=== PATIENT | male | born 1975 | race Caucasian/White ===

== ENCOUNTER 2019-01-23 13:23 | Inpatient (IN) | payer MEDICAID, SELFPAY ==
[2019-01-23 14:07] VITALS: BMI 24.6; BMI 24.7
[2019-01-23 14:56] VITALS: BP 140/73; PULSE 103; RESP 18; TEMP 36.8; O2SAT 95
[2019-01-23 15:21] LABS: Bedside Glucose 90 mg/dL (70-110)
--- NOTE | 2019-01-23 15:35 | HP.PCM_ITS ---
Problem List (1) Alcohol withdrawal delirium, acute, mixed level of activity Status: Acute (2) Alcohol use disorder Status: Chronic (3) Chronic hepatitis C Status: Chronic Qualifiers: Hepatic coma status: without hepatic coma Qualified Code(s): B18.2 - Chronic viral hepatitis C (4) Nicotine dependence Status: Chronic Qualifiers: Nicotine product type: cigarettes Substance use status: uncomplicated Qualified Code(s): F17.210 - Nicotine dependence, cigarettes, uncomplicated History of Present Illness Date of Admission: 01/23/19 Chief Complaint: Acute alcohol withdrawal The patient is a 43 year old M with past medical history of alcohol and nicotine dependence, complicated by history of alcohol withdrawal seizures, chronic hepatitis C, anxiety/depression who comes in for medical stabilization for acute alcohol withdrawal on the [facility] program. Patient admits to drinking alcohol from the age of 14. He drinks about 24 tall 8% beers daily. He has a history of heroin abuse but does not use it currently, also history of methamphetamine use, last used 3 months ago. Patient complains of having nausea, and having abdominal cramps, and tremors. No vomiting. His admission vitals include temperature of 90 8.3F, heart rate 103, blood pressure 140/73, respiratory rate was 18, SPO2 95% on room air. Past Medical History Past Medical History (Chronic Problems): Chronic Problems Alcohol use disorder (Chronic) Chronic hepatitis C (Chronic) Nicotine dependence (Chronic) Allergies No Known Allergies Allergy (Verified 01/23/19 14:56) Home Medications: Ambulatory Orders Medication Instructions Recorded Citalopram [Celexa] 40 mg PO DAILY 01/23/19 Surgical History: cholecystectomy Psychiatric History: Anxiety, Depression Lives: With Family Smoking Status: Current every day smoker Tobacco Use: Cigarettes Alcohol: None, Heavy Drugs: None - *Family History Maternal History Items: No pertinent history Paternal History Items: No pertinent history Review of Systems Constitutional: Denies: Anorexia, Chills, Fever, Malaise, Weakness, Weight Change Eyes: Denies: Blurred vision, Cataracts, Conjunctivae Inflammation, Pain, Redness, Vision Change HEENT: Denies: Difficulty Hearing, Difficulty Swallowing, Head Aches, Hearing Changes, Sinus Congestion, Sinus Drainage Cardiovascular: Denies: Chest Pain, Claudication, Orthopnea, Palpitations, Paroxysmal Noc. Dyspnea Respiratory: Denies: Cough, Hemoptysis, Shortness of breath at rest, Shortness of breath upon exertion, Sputum production Gastrointestinal: Denies: Abdominal Pain, Constipation, Hematemesis, Hematochezia, Nausea, Vomiting Genitourinary: Denies: Dysuria, Frequency, Incontinence Musculoskeletal: Denies: Joint Pain, Joint stiffness, Joint swelling, Joint Tenderness Skin: Denies: Rash, Wounds Neurological: Denies: Numbness, Tingling, Focal weakness Psychiatric: Denies: Anxiety, Depression, Homicidal Ideations, Suicidal Ideations Hematologic/ Lymphatic: Denies: Easy Bruising, Easy Bleeding VTE Information - Inpt Only VTE Present on Admission: No VTE Pharm Prophylaxis ordered?: Yes Patient Problems: Active and Suspected Problems Alcohol withdrawal delirium, acute, mixed level of activity (Acute) - Physical Exam General: Alert, Oriented x3, Cooperative, - - Appeared anxious HEENT: Atraumatic, PERRLA, EOMI, Normocephalic Oral: Moist Mucosa Neck: Supple Lungs: Clear to auscultation, Normal air movement Cardiovascular: Regular rate, Regular Rhythm, Normal S1, Normal S2, No murmurs Abdomen: Bowel Sounds Present, Soft, Non Tender, Non-Distended, No Hepato- splenomegaly Extremities: No edema Skin: No rashes, - - Tattoos on the left upper extremity Musculoskeletal: No Tenderness to Palpation of Joints or Extremities Lymphatic: No Cervical, Supraclavicular, or Inguinal Adenopathy Neurological: Cranial nerves II-XII grossly intact Psych/Mental Status: Normal Affect, Appropriate Vital Signs Temp Pulse Resp BP Pulse Ox 98.3 F 103 H 18 140/73 H 95 01/23/19 14:56 01/23/19 14:56 01/23/19 14:56 01/23/19 14:56 01/23/19 14:56 Oxygen Delivery Method Room Air Weight: 71.441 kg Body Mass Index (BMI) 24.6 Laboratory Tests Past 24 Hrs 01/23/19 01/23/19 15:05 15:05 WBC Pending RBC Pending Hgb Pending Hct Pending MCV Pending MCH Pending MCHC Pending RDW Pending RDW Differential Pending Plt Count Pending Neut % (Auto) Pending Absolute Neuts (auto) Pending Total Counted Pending Sodium Pending Potassium Pending Chloride Pending Carbon Dioxide Pending Anion Gap Pending BUN Pending Creatinine Pending Est GFR (MDRD) Af Amer Pending Est GFR (MDRD) Non-Af Pending BUN/Creatinine Ratio Pending Glucose Pending Calcium Pending Total Bilirubin Pending AST Pending ALT Pending Alkaline Phosphatase Pending Total Protein Pending Albumin Pending POC Glucose 01/23/19 15:18 POC Glucose 90 Assessment/Plan All Active Problems Alcohol withdrawal delirium, acute, mixed level of activity (Acute) 43 year old M with past medical history of alcohol and nicotine dependence, complicated by history of alcohol withdrawal seizures, chronic hepatitis C, anxiety/depression who comes in for medical stabilization for acute alcohol withdrawal on the [facility]. 1. Acute alcohol withdrawal, admitting CIWA score is 31, h/o heavy alcohol use disorder, h/o seizure disorder Plan: Admit to MedSurg, seizure precautions, continue on CIWA with Ativan taper, continue to monitor vitals closely. 2. Nicotine dependence, will start on replacement 3. Anxiety/dependence, on celexa 4. Chronic Hepatitis C, needs to follow-up in the outpatient 5. DVT PPx- Lovenox SC. Code Visit Inpatient E&M: 79300 Init Hosp L3
[2019-01-23 15:49] LABS: Absolute Lymphocyte Count 1.95 X10^3/ul (0.83-4.51); Absolute Neutrophil Count 2.9 X10^3/uL (2.0-7.7); Basophil# 0.03 X10^3/uL; Basophil% 0.5 % (0-1); Eosinophil# 0.34 X10^3/uL; Eosinophils% 5.9 % (0-5); Hematocrit 47.8 % (40-54); Hemoglobin 17.4 g/dl (13.0-16.5); Lymphocyte # 1.95 X10^3/ul (4.0); Lymphocyte % 33.7 % (19-41); Mean Corp Hgb Conc 36.4 g/gl (32-36); Mean Corpuscular Hgb 35.2 pg (27.0-32.0); Mean Corpuscular Volume 96.8 fL (80-94); Mean Platelet Vol. 8.3 fl (6.2-12.0); Monocyte# 0.53 X10^3/uL; Monocyte% 9.2 % (0-10); Neutrophil # 2.93 X10^3/uL (2.7-7.7); Neutrophil % 50.5 % (47-70); Platelet Count 196 K/mm3 (150-450); RBC Distribution Width CV 13.9 % (11.6-14.6); RBC Distribution Width SD 49.9 fl (35.1-43.9); Red Blood Count 4.94 M/mm3 (4.6-6.2); White Blood Count 5.8 K/mm3 (4.4-11.0)
[2019-01-23] MEDS: Dicyclomine 10 MG Capsule 20 MG PO ×2 (15:49→23:45)
[2019-01-23] MEDS: LORazepam 1 MG Tablet PO ×3 (15:49→23:45)
[2019-01-23] MEDS: Methocarbamol 750 MG Tablet PO ×2 (15:49→23:46)
[2019-01-23] MEDS: Ibuprofen 600 MG Tablet PO ×2 (15:49→23:45)
[2019-01-23 15:50] LABS: ALB/GLOB Ratio 1.1 RATIO (0.9-2.4); AST(SGOT) 144 U/L (15-37); Alanine Aminotransfer ALT/SGPT 131 U/L (16-61); Albumin, Serum 4.2 g/dL (3.2-5.0); Alkaline Phosphatase 103 U/L (45-117); Anion Gap 7 (5-15); BUN 4 mg/dL (7-18); BUN/Creat Ratio 5.8 RATIO (10-20); Calcium,Total 8.5 mg/dL (8.5-10.1); Chloride 105 mmol/L (98-107); Creatinine, Serum 0.69 mg/dL (0.70-1.30); EST Glomerular Filtration Rate 135 mL/min (>60); Est Glom Filt Rate - Afr Amer 163 mL/min (>60); Estimated Creatinine Clearance 131.72 ml/min; Globulin 3.7 g/dL (2.2-4.2); Glucose 83 mg/dL (74-106); Potassium 3.8 mmol/L (3.5-5.1); Protein, Total 7.9 g/dL (6.4-8.2); Sodium Level 137 mmol/L (136-145)
[2019-01-23 15:55] LABS: POSITIVE COUNT NO; POSITIVE DIFFERENTIAL NO; POSITIVE MORPHOLOGY NO
[2019-01-23] MEDS: Folic Acid 1 MG Tablet PO (16:02)
[2019-01-23] MEDS: Multivitamins,Therapeutic Tablet 1 TABLET PO (16:02)
[2019-01-23] MEDS: Nicotine Polacrilex 2 MG GUM PO ×2 (16:02→20:38)
[2019-01-23] MEDS: Thiamine Hydrochloride 100 MG Tablet PO (16:02)
[2019-01-23 20:30] VITALS: BP 143/96; PULSE 103; RESP 18; TEMP 36.4; O2SAT 100
[2019-01-23] MEDS: traZODone 50 MG Tablet PO (20:34)
[2019-01-23 21:33] LABS: Amphetamine Urine VISTA NEGATIVE (<1000 ng/mL); Barbiturate Urine VISTA NEGATIVE (< 200 ng/mL); Benzodiazepine Urine VISTA NEGATIVE (< 200 ng/mL); Cocaine Urine VISTA NEGATIVE (< 300 ng/mL); Ecstacy Urine VISTA NEGATIVE (< 500 ng/mL); Methadone Urine VISTA NEGATIVE (< 300 ng/mL); PCP Urine VISTA NEGATIVE (< 25 ng/mL); THC Urine VISTA POSITIVE (< 50 ng/mL); Vista UDS pH Range 5
[2019-01-23 23:47] VITALS: BP 139/95; PULSE 110; RESP 16; TEMP 36.7; O2SAT 100
[2019-01-24] VITALS (7 sets, daily range): BP systolic 133–148; BP diastolic 89–102; PULSE 74–105; RESP 16–18; TEMP 36.5–37.2; O2SAT 97–100
[2019-01-24] MEDS: LORazepam 1 MG Tablet PO ×5 (04:04→23:45)
[2019-01-24] MEDS: Folic Acid 1 MG Tablet PO (08:27)
[2019-01-24] MEDS: Thiamine Hydrochloride 100 MG Tablet PO (08:28)
[2019-01-24] MEDS: Multivitamins,Therapeutic Tablet 1 TABLET PO (08:28)
--- NOTE | 2019-01-24 08:36 | NEWVISION ---
Patient's D/C plan is to move into [facility] for their 7 month rehabilitation for men immediately upon D/C. Mother to provide transportation.
--- NOTE | 2019-01-24 09:10 | PN_ITS ---
Patient Problems: Active and Suspected Problems Alcohol withdrawal delirium, acute, mixed level of activity (Acute) Subjective: Patient was seen and examined. Denied any new complaint. His tremors and abdominal discomfort has improved. Objective: Physical Exam General: Alert, Oriented x3, Cooperative, - - Appeared less anxious HEENT: Atraumatic, PERRLA, EOMI, Normocephalic Oral: Moist Mucosa Neck: Supple Lungs: Clear to auscultation, Normal air movement Cardiovascular: Regular rate, Regular Rhythm, Normal S1, Normal S2, No murmurs Abdomen: Bowel Sounds Present, Soft, Non Tender, Non-Distended, No Hepato- splenomegaly Extremities: No edema Skin: No rashes, - - Tattoos on the left upper extremity Musculoskeletal: No Tenderness to Palpation of Joints or Extremities Lymphatic: No Cervical, Supraclavicular, or Inguinal Adenopathy Neurological: Cranial nerves II-XII grossly intact Psych/Mental Status: Normal Affect, Appropriate Vitals/I&O's: Vital Signs Temp Pulse Resp BP Pulse Ox 97.7 F L 94 16 140/98 H 100 01/24/19 04:07 01/24/19 04:07 01/24/19 04:07 01/24/19 04:07 01/24/19 04:07 Oxygen Delivery Method Room Air Weight: 71.441 kg Body Mass Index (BMI) 24.6 Intake and Output for Last 24 Hours 01/22/19 01/23/19 01/24/19 23:59 23:59 23:59 Intake Total 480 / 480 200 / 200 Balance 480 / 480 200 / 200 Laboratory Results 01/23/19 15:05: WBC 5.8, RBC 4.94, Hgb 17.4 H, Hct 47.8, MCV 96.8 H, MCH 35.2 H, MCHC 36.4 H, RDW 13.9, RDW Differential 49.9 H, Plt Count 196, MPV 8.3, Immature Gran % (Auto) 0.200, Neut % (Auto) 50.5, Lymph % (Auto) 33.7, Knott % (Auto) 9.2, Eos % (Auto) 5.9 H, Baso % (Auto) 0.5, Absolute Neuts (auto) 2.9, Absolute Lymphs (auto) 1.95, Total Counted Not Reportable 01/23/19 15:05: Sodium 137, Potassium 3.8, Chloride 105, Carbon Dioxide 25.0, Anion Gap 7, BUN 4 L, Creatinine 0.69 L, Estim Creat Clear Calc 131.72, Est GFR (MDRD) Af Amer 163, Est GFR (MDRD) Non-Af 135, BUN/Creatinine Ratio 5.8 L, Glucose 83, Calcium 8.5, Total Bilirubin 0.50, AST 144 H, ALT 131 H, Alkaline Phosphatase 103, Total Protein 7.9, Albumin 4.2, Globulin 3.7, Albumin/Globulin Ratio 1.1 01/23/19 15:18: POC Glucose 90 01/23/19 21:06: Urine Opiates Screen NEGATIVE, Urine Methadone Screen NEGATIVE, Ur Barbiturates Screen NEGATIVE, Ur Phencyclidine Scrn NEGATIVE, Ur Amphetamines Screen NEGATIVE, U Methamphetamin-MDMA NEGATIVE, U Benzodiazepines Scrn NEGATIVE, Urine Cocaine Screen NEGATIVE, U Cannabinoids Screen POSITIVE H, Ur Drug Screen Comment Current Medications Acetaminophen (Tylenol) 500 mg PO Q4H PRN PRN PRN Reason: Temp > 100.4 F Bisacodyl (Dulcolax) 10 mg RECTAL DAILY PRN PRN Reason: Constipation Dicyclomine HCl (Bentyl) 20 mg PO Q6H PRN PRN PRN Reason: abdominal discomfort Last Admin: 01/23/19 23:45 Dose: 20 mg Enoxaparin Sodium (Lovenox) 40 mg SC DAILY@1000 RENEE Folic Acid (Folic Acid) 1 mg PO DAILYCM RENEE Stop: 01/26/19 08:01 Last Admin: 01/24/19 08:27 Dose: 1 mg Ibuprofen (Motrin) 600 mg PO Q8H PRN PRN PRN Reason: Mild-Moderate Pain (1-5/10) Last Admin: 01/23/19 23:45 Dose: 600 mg Loperamide HCl (Imodium) 2 - 4 mg PO UD PRN PRN Reason: LOOSE STOOLS Lorazepam (Ativan) 2 mg IV X1 PRN PRN Reason: Seizure Lorazepam (Ativan) 1 mg PO Q4H RENEE; Taper Stop: 01/26/19 19:59 Last Admin: 01/24/19 08:27 Dose: 1 mg Methocarbamol (Methocarbamol) 750 mg PO Q6H PRN PRN PRN Reason: Muscle Aches Last Admin: 01/23/19 23:46 Dose: 750 mg [facility] Last Admin: 01/24/19 08:28 Dose: 1 tablet Nicotine (Nicoderm Cq (Pbkc)) 21 mg TRANSDERM. DAILY [facility] Last Admin: 01/23/19 16:05 Dose: Not Given Nicotine Polacrilex (Rugby Nicotine (Bkc)) 2 mg PO Q2H PRN PRN PRN Reason: Nicotine Craving Last Admin: 01/23/19 20:38 Dose: 2 mg Senna (Senokot) 1 tablet PO QHS PRN PRN Reason: Constipation Thiamine HCl ([facility]itamin B1) [facility] Stop: 01/26/19 08:01 Last Admin: 01/24/19 08:28 Dose: 100 mg Trazodone HCl (Desyrel) 50 mg PO QHS [facility] Last Admin: 01/23/19 20:34 Dose: 50 mg Medical Necessity - Tobacco Use Smoking Status: Current every day smoker Tobacco Use: Cigarettes Assessment/Plan All Active Problems Alcohol withdrawal delirium, acute, mixed level of activity (Acute) 43 year old M with past medical history of alcohol and nicotine dependence, complicated by history of alcohol withdrawal seizures, chronic hepatitis C, anxiety/depression who comes in for medical stabilization for acute alcohol withdrawal on the [facility] program. 1. Acute alcohol withdrawal, admitting CIWA score is 31, h/o heavy alcohol use disorder, h/o seizure disorder Improving, CIWA score this morning is 8. Continue with Ativan taper, with monitoring of vitals closely. 2. Nicotine dependence, on replacement 3. Anxiety/dependence, on celexa 4. Chronic Hepatitis C, needs to follow-up in the outpatient 5. DVT PPx- Lovenox SC. Code Visit Inpatient E&M: 49859 Subs Hosp L2
[2019-01-24] MEDS: Enoxaparin 40 MG/0.4 ML Syringe SC (10:07)
[2019-01-24] MEDS: Nicotine Polacrilex 2 MG GUM PO ×3 (15:50→23:46)
[2019-01-24] MEDS: Ibuprofen 600 MG Tablet PO (19:47)
[2019-01-24] MEDS: Methocarbamol 750 MG Tablet PO (19:47)
[2019-01-24] MEDS: traZODone 50 MG Tablet PO (21:49)
[2019-01-25 05:48] VITALS: BP 139/86; PULSE 76; RESP 16; TEMP 36.4; O2SAT 99
[2019-01-25] MEDS: LORazepam 1 MG Tablet PO ×3 (05:50→20:12)
[2019-01-25] MEDS: Methocarbamol 750 MG Tablet PO ×3 (07:56→20:14)
[2019-01-25] MEDS: Enoxaparin 40 MG/0.4 ML Syringe SC (07:56)
[2019-01-25] MEDS: Nicotine Polacrilex 2 MG GUM PO ×5 (07:57→22:22)
[2019-01-25] MEDS: Folic Acid 1 MG Tablet PO (07:57)
[2019-01-25 07:59] VITALS: BP 127/81; PULSE 95; RESP 16; TEMP 36.5; O2SAT 99
--- NOTE | 2019-01-25 08:21 | PN_ITS ---
Patient Problems: Active and Suspected Problems Alcohol withdrawal delirium, acute, mixed level of activity (Acute) Subjective: Patient was seen and examined. Denies any new complains. He is beginning to feel better. Objective: Physical Exam General: Alert, Oriented x3, Cooperative, - - Appeared less anxious HEENT: Atraumatic, PERRLA, EOMI, Normocephalic Oral: Moist Mucosa Neck: Supple Lungs: Clear to auscultation, Normal air movement Cardiovascular: Regular rate, Regular Rhythm, Normal S1, Normal S2, No murmurs Abdomen: Bowel Sounds Present, Soft, Non Tender, Non-Distended, No Hepato- splenomegaly Extremities: No edema Skin: No rashes, - - Tattoos on the left upper extremity Musculoskeletal: No Tenderness to Palpation of Joints or Extremities Lymphatic: No Cervical, Supraclavicular, or Inguinal Adenopathy Neurological: Cranial nerves II-XII grossly intact Psych/Mental Status: Normal Affect, Appropriate Vitals/I&O's: Vital Signs Temp Pulse Resp BP Pulse Ox 97.7 F L 95 16 127/81 H 99 01/25/19 07:59 01/25/19 07:59 01/25/19 07:59 01/25/19 07:59 01/25/19 07:59 Oxygen Delivery Method Room Air Weight: 71.441 kg Body Mass Index (BMI) 24.6 Intake and Output for Last 24 Hours 01/23/19 01/24/19 01/25/19 23:59 23:59 23:59 Intake Total 480 / 480 3360 / 3360 300 / 300 Balance 480 / 480 3360 / 3360 300 / 300 Current Medications Acetaminophen (Tylenol) 500 mg PO Q4H PRN PRN PRN Reason: Temp > 100.4 F Bisacodyl (Dulcolax) 10 mg RECTAL DAILY PRN PRN Reason: Constipation Dicyclomine HCl (Bentyl) 20 mg PO Q6H PRN PRN PRN Reason: abdominal discomfort Last Admin: 01/23/19 23:45 Dose: 20 mg Enoxaparin Sodium (Lovenox) 40 mg SC DAILY@1000 RENEE Last Admin: 01/25/19 07:56 Dose: 40 mg Folic Acid (Folic Acid) 1 mg PO DAILYCM RENEE Stop: 01/26/19 08:01 Last Admin: 01/25/19 07:57 Dose: 1 mg Ibuprofen (Motrin) 600 mg PO Q8H PRN PRN PRN Reason: Mild-Moderate Pain (1-5/10) Last Admin: 01/24/19 19:47 Dose: 600 mg Loperamide HCl (Imodium) 2 - 4 mg PO UD PRN PRN Reason: LOOSE STOOLS Lorazepam (Ativan) 2 mg IV X1 PRN PRN Reason: Seizure Lorazepam (Ativan) 1 mg PO Q6H [facility]; Taper Stop: 01/26/19 19:59 Last Admin: 01/25/19 05:50 Dose: 1 mg Methocarbamol (Methocarbamol) 750 mg PO Q6H PRN PRN PRN Reason: Muscle Aches Last Admin: 01/25/19 07:56 Dose: 750 mg [facility]it[facility] ([facility]itamin) [facility] Last Admin: 01/24/19 08:28 Dose: 1 tablet Nicotine (Nicoderm Cq (Pbkc)) 21 mg TRANSDERM. DAILY [facility] Last Admin: 01/24/19 19:47 Dose: 21 mg Nicotine Polacrilex (Rugby Nicotine (Bkc)) 2 mg PO Q2H PRN PRN PRN Reason: Nicotine Craving Last Admin: 01/25/19 07:57 Dose: 2 mg Senna (Senokot) 1 tablet PO QHS PRN PRN Reason: Constipation Thiamine HCl (Vitamin B1) [facility] Stop: 01/26/19 08:01 Last Admin: 01/24/19 08:28 Dose: 100 mg Trazodone HCl (Desyrel) 50 mg PO QHS [facility] Last Admin: 01/24/19 21:49 Dose: 50 mg Medical Necessity - Tobacco Use Smoking Status: Current every day smoker Tobacco Use: Cigarettes Assessment/Plan All Active Problems Alcohol withdrawal delirium, acute, mixed level of activity (Acute) 43 year old M with past medical history of alcohol and nicotine dependence, complicated by history of alcohol withdrawal seizures, chronic hepatitis C, anxiety/depression who comes in for medical stabilization for acute alcohol withdrawal on the [facility] program. 1. Acute alcohol withdrawal, h/o heavy alcohol use disorder, h/o seizure disorder, improving No seizures seen in this hospitalisation, will continue on CIWA protocol. 2. Nicotine dependence, on replacement 3. Anxiety/dependence, on celexa 4. Chronic Hepatitis C, needs to follow-up in the outpatient 5. DVT PPx- Lovenox SC. 6. Disposition: Possible dc in am Code Visit Inpatient E&M: 43789 Subs Hosp L2
[2019-01-25] MEDS: Thiamine Hydrochloride 100 MG Tablet PO (10:34)
[2019-01-25] MEDS: Multivitamins,Therapeutic Tablet 1 TABLET PO (10:34)
[2019-01-25 14:09] VITALS: BP 136/100; PULSE 92; RESP 16; TEMP 36.4; O2SAT 98
--- NOTE | 2019-01-25 15:52 | NEWVISION ---
Patient called to report he was changing his DC plan to [facility] in [facility] which is close to where his daughter lives and that they just informed him that they had a bed open up.
[2019-01-25 18:14] VITALS: BP 132/91; PULSE 94; RESP 18; TEMP 36.6; O2SAT 100
[2019-01-25 20:10] VITALS: BP 135/99; PULSE 84; RESP 16; TEMP 36.9; O2SAT 95
[2019-01-25] MEDS: traZODone 50 MG Tablet PO (22:22)
[2019-01-26] MEDS: LORazepam 1 MG Tablet PO ×2 (04:52→11:58)
[2019-01-26 04:53] VITALS: BP 111/90; PULSE 90; RESP 14; TEMP 36.5
--- NOTE | 2019-01-26 07:40 | PCM.DC ---
- Discharge Diagnoses Current Active Problems: Current Active and Chronic Problems Alcohol withdrawal delirium, acute, mixed level of activity (Acute) Alcohol use disorder (Chronic) Chronic hepatitis C (Chronic) Nicotine dependence (Chronic) Reason(s) for Visit for Discharge Instructions: Acute alcohol withdrawal You will use the following diet at home:: Cardiac Your food should be the consistency of: Regular Your liquids should be the consistency of: Regular/Thin Discharge Activity: Return to Normal Activity Additional Instructions: Continue with your outpatient program as scheduled. You are advised to quit drinking and smoking. Allergies/Adverse Reactions: Allergies No Known Allergies Allergy (Verified 01/23/19 14:56) Medications to take at Discharge Citalopram [Celexa] 40 mg PO DAILY 01/23/19 Primary Care Physician: Care Physician,No Primary [Primary Care Provider] - Please follow up with your Primary Care Physician in: within 2 weeks Test Results: Test results from this visit will be discussed in further detail at your follow-up appointment, if applicable. Proposed Discharge Date: 01/26/19
--- NOTE | 2019-01-26 07:43 | DCINST_ITS ---
- Discharge Diagnoses Current Active Problems: Current Active and Chronic Problems Alcohol withdrawal delirium, acute, mixed level of activity (Acute) Alcohol use disorder (Chronic) Chronic hepatitis C (Chronic) Nicotine dependence (Chronic) Reason(s) for Visit for Discharge Instructions: Acute alcohol withdrawal You will use the following diet at home:: Cardiac Your food should be the consistency of: Regular Your liquids should be the consistency of: Regular/Thin Discharge Activity: Return to Normal Activity Additional Instructions: Continue with your outpatient program as scheduled. You are advised to quit drinking and smoking. Allergies/Adverse Reactions: Allergies No Known Allergies Allergy (Verified 01/23/19 14:56) Medications to take at Discharge Citalopram [Celexa] 40 mg PO DAILY 01/23/19 Primary Care Physician: Care Physician,No Primary [Primary Care Provider] - Please follow up with your Primary Care Physician in: within 2 weeks Test Results: Test results from this visit will be discussed in further detail at your follow- up appointment, if applicable. Proposed Discharge Date: 01/26/19
--- NOTE | 2019-01-26 07:43 | PCM.DC.SUM ---
Discharge Date and Diagnosis Date of Admission: 01/23/19 Date of Discharge: 01/26/19 - Primary Discharge Diagnosis Active and Suspected Problems Alcohol withdrawal delirium, acute, mixed level of activity (Acute) Nicotine dependence - Secondary Discharge Diagnosis Chronic Problems Alcohol use disorder (Chronic) Chronic hepatitis C (Chronic) Nicotine dependence (Chronic) Hospital Course and Treatment None Operations: None Procedures: None Summary of Care Provided: 43 year old M with past medical history of alcohol and nicotine dependence, complicated by history of alcohol withdrawal seizures, chronic hepatitis C, anxiety/depression who comes in for medical stabilization for acute alcohol withdrawal on the [facility] program. Patient was managed as acute alcohol withdrawal, history of seizure disorder. No seizures were seen in this hospitalization. He was managed on the [facility] protocol with sepsis. He also has history of smoking, with marginal replacement. Patient has history of chronic hepatitis C and he knows to follow-up in the outpatient. He continued to improve and was discharged in a stable state. Subjective: On the day of discharge, patient was seen and examined. No new complaints. He feels much improved. No tremors no nausea or vomiting. Objective: Physical Exam General: Alert, Oriented x3, Cooperative, - - Appeared less anxious HEENT: Atraumatic, PERRLA, EOMI, Normocephalic Oral: Moist Mucosa Neck: Supple Lungs: Clear to auscultation, Normal air movement Cardiovascular: Regular rate, Regular Rhythm, Normal S1, Normal S2, No murmurs Abdomen: Bowel Sounds Present, Soft, Non Tender, Non-Distended, No Hepato-splenomegaly Extremities: No edema Skin: No rashes, - - Tattoos on the left upper extremity Musculoskeletal: No Tenderness to Palpation of Joints or Extremities Lymphatic: No Cervical, Supraclavicular, or Inguinal Adenopathy Neurological: Cranial nerves II-XII grossly intact Psych/Mental Status: Normal Affect, Appropriate - Physical Exam Vital Signs Temp Pulse Resp BP Pulse Ox 97.7 F L 90 14 111/90 H 95 01/26/19 04:53 01/26/19 04:53 01/26/19 04:53 01/26/19 04:53 01/25/19 20:10 Oxygen Delivery Method Room Air Weight: 71.441 kg Body Mass Index (BMI) 24.6 Intake and Output for Last 24 Hours 01/24/19 01/25/19 01/26/19 23:59 23:59 23:59 Intake Total 3360 / 3360 300 / 300 1320 / 1320 Balance 3360 / 3360 300 / 300 1320 / 1320 Discharge Diet: No Restrictions Discharge Activity: Return to Normal Activity Home Medications: Medications to take at Discharge Citalopram [Celexa] 40 mg PO DAILY 01/23/19 Primary Care Physician: Care Physician,No Primary [Primary Care Provider] - Please follow up with your Primary Care Physician in: within 2 weeks Disposition: Home Minutes spent on discharge:: 25 Patient Condition:: Stable Medical Necessity - Tobacco Use Smoking Status: Current every day smoker Tobacco Use: Cigarettes Meaningful Use Info Meaningful Use Diagnoses (Choose all that apply): None applicable Code Visit Inpatient E&M: 80054 Disch Hosp
[2019-01-26] MEDS: Multivitamins,Therapeutic Tablet 1 TABLET PO (07:58)
[2019-01-26] MEDS: Enoxaparin 40 MG/0.4 ML Syringe SC (07:59)
[2019-01-26] MEDS: Folic Acid 1 MG Tablet PO (07:59)
[2019-01-26] MEDS: Thiamine Hydrochloride 100 MG Tablet PO (07:59)
[2019-01-26 10:16] VITALS: BP 128/90; PULSE 96; RESP 18; TEMP 36.5; O2SAT 100
== END 2019-01-26 12:04 | disposition home or self-care (01) | DRG 775 ==
PROVIDERS: Admitting Provider Internal Medicine; Referring Provider Internal Medicine; Visit Provider Internal Medicine
DX: F10.231 Alcohol dependence with withdrawal delirium (principal); B18.2 Chronic viral hepatitis C; F17.210 Nicotine dependence, cigarettes, uncomplicated
CPT/HCPCS: 36415; 80053; 80307; 82962; 85025; 99406